=== PATIENT | female | born 1975 | race Hispanic/Latino ===

== ENCOUNTER 2024-01-23 07:52 | Day surgery (SDC) | payer OTHER ==
[~2024-01-23] VITALS: Ht 162.6 cm; Wt 99.3 kg
[2024-01-23] VITALS (9 sets, daily range): BP systolic 108–121; BP diastolic 65–79; PULSE 62–80; RESP 15–18
[2024-01-23] MEDS ORDERED: [UNRECOGNIZED DRUG - CODE] PO (09:53)
[2024-01-23] MEDS: 0.9%NACL 1000ML 1,000 ML IV ONE (10:00)
[2024-01-23] MEDS ORDERED: LIDOCAINE HCL 400MG/20ML VIAL ONE (10:55)
[2024-01-23] MEDS ORDERED: PROPOFOL 10 MG/ML 20ML VIAL IV ONE (10:55)
== END 2024-01-23 12:10 | disposition home or self-care (01) ==
LOC: ENDO 07:52 → DAH 07:52 → ENDO 12:10
PROVIDERS: ATTEND Internal Medicine Gastroenterology
DX: K60.0 Acute anal fissure (principal); K92.1 Melena; K62.89 Other specified diseases of anus and rectum; Z72.89 Other problems related to lifestyle; Z83.79 Family history of other diseases of the digestive system; Z82.49 Family history of ischemic heart disease and other diseases of the circulatory system; Z90.49 Acquired absence of other specified parts of digestive tract; Z98.891 History of uterine scar from previous surgery
CPT/HCPCS: 45378; 81025; J3490; J7030; J2704; A4620